=== PATIENT | female | born 1985 | race American Indian/Alaskan Native ===

== ENCOUNTER 2022-04-18 09:14 | Inpatient (IN) | payer OTHER ==
[2022-04-18] MEDS ORDERED: LIDOCAINE (2%) 20 MG/1 ML VIAL 20 ML MDV INFILTRATI NR (11:24)
[2022-04-18] MEDS ORDERED: ePHEDrine SULFATE 50 MG/1 ML INJ IV PRN ×2 (11:24→18:39)
[2022-04-18] MEDS ORDERED: miSOPROStol 200 MCG TAB PR PRN ×2 (11:24→21:52)
[2022-04-18] MEDS ORDERED: TERBUTALINE 1 MG/1 ML INJ SUB-Q PRN (11:24)
[2022-04-18] MEDS ORDERED: OXYTOCIN DRIP 30 UNITS/500 ML BAG IV SCH (12:00)
[2022-04-18] MEDS ORDERED: METHYLERGONOVINE MALEATE 0.2 MG/ML VIAL IM PRN ×2 (12:00→21:52)
[2022-04-18] MEDS ORDERED: CARBOPROST TROMETHAMINE 250 MCG/1 ML INJ IM PRN (12:00)
[2022-04-18] MEDS ORDERED: BUTORPHANOL 2 MG/1 ML INJ IV PRN ×2 (12:00)
[2022-04-18] MEDS ORDERED: ACETAMINOPHEN 325 MG TAB PO PRN ×2 (12:00→21:52)
[2022-04-18] MEDS ORDERED: OXYTOCIN 10 UNIT/1 ML INJ IM PRN (12:00)
[2022-04-18] MEDS ORDERED: fentaNYL 100 MCG/2 ML INJ IV PRN (12:00)
[2022-04-18] MEDS ORDERED: LOPERAMIDE 2 MG CAP PO PRN (12:00)
[2022-04-18 12:06] LABS: Hematocrit 34.4 % (30.3-42.9); Hemoglobin 11.1 gm/dl (10.1-14.3); Mean Corpuscular HGB Conc 32 % (30-34); Mean Corpuscular Volume 88 fl (79-97); Platelet Count 313 K/mm3 (140-440); Red Blood Count 3.92 M/mm3 (3.65-5.03); Red Cell Distribution Width 14.2 % (13.2-15.2)
[2022-04-18] MEDS: LACTATED RINGERS 1,000 ML IV SCH ×2 (12:17→17:45)
[2022-04-18] MEDS: OXYTOCIN DRIP 30 UNITS/500 ML BAG IV SCH ×7 (12:18→17:12)
--- NOTE | 2022-04-18 18:02 | History and Physical Report ---
History of Present Illness Date of examination: 04/18/22 Date of admission: 04/18/22 11:28 Chief complaint: Scheduled induction History of present illness: Pt is a 36 year old -[place] female WILDA 04/22/22 at 39w3d who presents for induction of labor secondary to morbid obesity. She reports irregular contractions, and denies vaginal bleeding or leakage of fluid. She has had care at [facility] with comanagement by [facility] secondary to advanced maternal age, anemia, genital herpes without lesion or prodrome, grandmultiparity, h/o PPROM and delivery and morbid obesity. She is GBS negative. 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 Family/Genetic History: none Social history: no significant social history - Obstetrical History Expected Date of Delivery: 04/22/22 Actual Gestation: 39 Week(s) 3 Day(s) : 10 Para: 6 Hx # Term Pregnancies: 5 Number of Pregnancies: 1 Spontaneous Abortions: 0 Induced : 0 Number of Living Children: 6 Medications and Allergies Allergies Allergy/AdvReac Type Severity Reaction Status Date / Time No Known Allergies Allergy Unverified 04/18/22 11:24 Active Meds: Active Medications Acetaminophen (Acetaminophen 325 Mg Tab) 650 mg PO Q4H PRN PRN Reason: Pain, Mild (1-3) Butorphanol Tartrate (Butorphanol 2 Mg/1 Ml Inj) 1 mg IV Q2H PRN PRN Reason: Pain, Moderate(4-6) LABOR PAIN Last Admin: 04/18/22 17:36 Dose: 1 mg Butorphanol Tartrate (Butorphanol 2 Mg/1 Ml Inj) 2 mg IV Q2H PRN PRN Reason: Pain , Severe (7-10) Carboprost Tromethamine (Carboprost Tromethamine 250 Mcg/1 Ml Inj) 250 mcg IM ONCE PRN PRN Reason: Uterine Bleeding Ephedrine Sulfate (Ephedrine Sulfate 50 Mg/1 Ml Inj) 10 mg IV Q2M PRN PRN Reason: Hypotension Fentanyl (Fentanyl 100 Mcg/2 Ml Inj) 100 mcg IV Q2H PRN PRN Reason: Pain,Severe (7-10) LABOR PAIN Oxytocin/Sodium Chloride (Pitocin/Ns 30 Unit/500ml) 30 units in 500 mls @ 2 mls/hr IV TITR OMKAR; Protocol Last Admin: 04/18/22 17:12 Dose: 14 ml/hr, 14 mls/hr Lactated Ringer's (Lactated Ringers) 1,000 mls @ 125 mls/hr IV DIRECT OMKAR Last Admin: 04/18/22 17:45 Dose: 125 mls/hr Oxytocin/Sodium Chloride (Pitocin/Ns 30 Unit/500ml) 30 units in 500 mls @ 40 mls/hr IV TITR OMKAR; Protocol Lidocaine (Lidocaine (2%) 20 Mg/1 Ml Vial 20 Ml Mdv) 20 ml INFILTRATI ONCE NR Stop: 04/18/22 20:00 Loperamide HCl (Loperamide 2 Mg Cap) 2 mg PO ONCE PRN PRN Reason: give with Hemabate Methylergonovine Maleate (Methylergonovine Maleate 0.2 Mg/Ml Vial) 0.2 mg IM ONCE PRN PRN Reason: Uterine Bleeding Mineral Oil (Mineral Oil 30 Ml Oral Liqd) 30 ml PO QHS PRN PRN Reason: Constipation Misoprostol (Misoprostol 200 Mcg Tab) 800 mcg TN ONCE PRN PRN Reason: Uterine Bleeding Oxytocin (Oxytocin 10 Unit/1 Ml Inj) 10 unit IM ONCE PRN PRN Reason: Uterine Bleeding Terbutaline Sulfate (Terbutaline 1 Mg/1 Ml Inj) 0.25 mg SUB-Q ONCE PRN PRN Reason: Hyperstimulation/Hypertonicity Review of Systems All systems: negative - Vital Signs Vital signs: Vital Signs Pulse BP 99 H 117/64 04/18/22 10:09 04/18/22 10:09 Temp Pulse Resp BP Pulse Ox 98.4 F 86 16 112/64 99 04/18/22 10:27 04/18/22 17:54 04/18/22 10:27 04/18/22 16:17 04/18/22 17:54 - Physical Exam Breasts: Positive: deferred Abdomen: Positive: soft (obese, gravid ) Genitourinary (Female): Positive: normal external genitalia Uterus: Positive: enlarged (gravid ) Extremities: Positive: edema (trace ) - Obstetrical FHR: auscultation normal Uterine Contraction Monitor Mode: External Cervical Dilatation: 4 Cervical Effacement Percentage: 70 station: -2 Uterine Contraction Pattern: Regular Uterine Tone Measurement Phase: Resting Uterine Contraction Intensity: Moderate Results Result Diagrams: 04/18/22 Unknown Abnormal lab results 04/18/22 Range/Units Unknown WBC 13.1 H (4.5-11.0) K/mm3 All other labs normal. Assessment and Plan A: IUP at 39w3d Morbid Obesity Advanced Maternal Age Grandmultiparity Anemia Genital herpes without lesion or prodrome h/o PPROM and delivery GBS negative P: Admit to labor and delivery Pitocin augmentation AROM- meconium stained fluid Closely monitor maternal and status
--- NOTE | 2022-04-18 18:36 | Event Note ---
Date: 04/18/22 Pt more comfortable with epidural. Category II tracing. SVE: /-1. Continue pitocin augmentaton. Closely monitor clinical status.
[2022-04-18] MEDS ORDERED: fentaNYL-BUPIV 2 MCG/ML-0.125% 200 MCG/100 ML BAG EPIDURAL SCH (18:39)
[2022-04-18] MEDS ORDERED: NALOXONE 0.4 MG/1 ML INJ IV PRN (18:39)
--- NOTE | 2022-04-18 18:46 | Progress Note ---
Labor Epidural - Labor Epidural Start Time: 18:15 Stop Time: 18:19 Performed by:: SAVI YATES Procedure: Epidural Requested for Labor Pain. H&P and PT Chart reviewed and consent obtained. Time out performed and the procedure was explained, all questions answered. Patient was placed in a sitting position with monitors applied. The PTs back was prepped and draped in usual sterile fashion. The Skin was localized with 3 mL of 1% lidocaine at L3-L4. A 17-gauge Touhy epidural needle was advanced to JIMMY with saline at 7 cm and no blood/CSF was noted via epidural needle. Epidural catheter was advanced to 12 cm. There was negative aspiration for blood and CSF in the catheter and negative response to a test dose of 3 ml 1.5% lidocaine w/ Epi and a sterile dressing was applied Patient tolerated the procedure well and there were no immediate complications noted.
--- NOTE | 2022-04-18 18:46 | Anesthesia Consultation ---
Anesthesia Consult and Med Hx Date of service: 04/18/22 - Airway Anesthetic Teeth Evaluation: Good ROM Head & Neck: Adequate Mental/Hyoid Distance: Adequate Mallampati Class: Class II Intubation Access Assessment: Probably Good - Pulmonary Exam CTA: Yes - Cardiac Exam Cardiac Exam: RRR - Pre-Operative Health Status ASA Pre-Surgery Classification: ASA2 Proposed Anesthetic Plan: Epidural - Pulmonary Hx Smoking: No Hx Asthma: No Hx Respiratory Symptoms: No SOB: No COPD: No Home Oxygen Therapy: No Hx Pneumonia: No Hx Sleep Apnea: No - Cardiovascular System Hx Hypertension: No Hx Coronary Artery Disease: No Hx Heart Attack/AMI: No Hx Angina: No Hx Percutaneous Transluminal Coronary Angioplasty (PTCA): No Hx Cardia Arrhythmia: No Hx Pacemaker: No Hx Internal Defibrillator: No Hx Valvular Heart Disease: No Hx Heart Murmur: No Hx Peripheral Vascular Disease: No - Central Nervous System Hx Neuromuscular Disorder: No Hx Seizures: No CVA: No Hx Back Pain: No Hx Psychiatric Problems: No - Gastrointestinal Hx Ulcer: No Hx Gastroesophageal Reflux Disease: No - Endocrine Hx Renal Disease: No Hx End Stage Renal Disease: No Hx Cirrhosis: No Hx Liver Disease: No Hx Insulin Dependent Diabetes: No Hx Non-Insulin Dependent Diabetes: No Hx Thyroid Disease: No Hx Hypothyroidism: No Hx Hyperthyroidism: No - Hematic Hx Anemia: No Hx Sickle Cell Disease: No - Other Systems Hx Alcohol Use: No Hx Substance Use: No Hx Cancer: No Hx Obesity: No
--- NOTE | 2022-04-18 18:46 | Anesthesia Day of Surgery ---
Anesthesia Day of Surgery - Day of Surgery Patient Examined: Yes Patient H&P Reviewed: Yes Patient is NPO: Yes Beta Blockers: No Cardiac Clearance: No Pulmonary Clearance: No Fredy's Test: N/A
--- NOTE | 2022-04-18 20:09 | Procedure Note ---
OB Delivery Note - Delivery Date of Delivery: 04/18/22 Surgeon: VIRGINIA AVILES Estimated blood loss: other (600 mL) - Vaginal Delivery presentation: vertex Delivery position: OA Intrapartum events: PROM->1hr before delivery, meconium, decreased FHT variability, hemorrhage Delivery induction: oxytocin Delivery augmentation: rupture of membranes, pitocin Delivery monitor: external FHT, external uterine Route of delivery: Delivery placenta: spontaneous Episiotomy: none Delivery laceration: other (vaginal abrasions, hemostatic ) Anesthesia: epidural - A at 1 minute: 8 at 5 minutes: 9 Gender: Female (3190g (7lb 1oz) @ 1923 pm)
[2022-04-18] MEDS ORDERED: ONDANSETRON 4 MG/2 ML INJ IV PRN (21:52)
[2022-04-18] MEDS ORDERED: PROMETHAZINE 25 MG TAB PO PRN (21:52)
[2022-04-18] MEDS ORDERED: MAGNESIUM HYDROXIDE (MOM) ORAL LIQD UDC PO PRN (21:52)
[2022-04-18] MEDS ORDERED: LANOLIN/ZINC/DIMETHICONE (LANSINOH) 7 GM TP PRN ×2 (21:52)
[2022-04-18] MEDS ORDERED: diphenhydrAMINE 25 MG CAP PO PRN (21:52)
[2022-04-18] MEDS ORDERED: WITCH HAZEL/ GLYCERIN PAD TP PRN (21:52)
[2022-04-18] MEDS ORDERED: BENZOCAINE/MENTHOL 20/0.5% TOP SPRAY 56 GM TP PRN (21:52)
[2022-04-18] MEDS ORDERED: PROMETHAZINE 25 MG RECT SUPP PR PRN (21:52)
[2022-04-18] MEDS: FERROUS SULFATE 325 MG TAB PO SCH (22:00)
[2022-04-18] MEDS ORDERED: MINERAL OIL 30 ML ORAL LIQD PO PRN (22:00)
[2022-04-18] MEDS: IBUPROFEN 800 MG TAB PO SCH (22:00)
[2022-04-19] MEDS: HYDROcodone/ACETAMINOPHEN 5-325 MG TAB PO PRN ×3 (02:00→18:06)
[2022-04-19] MEDS: IBUPROFEN 800 MG TAB PO SCH ×3 (05:46→22:14)
[2022-04-19] MEDS ORDERED: MEASLES, MUMPS & RUBELLA 12,500 UNIT/0.5 ML VACCINE SUB-Q ONE (06:00)
[2022-04-19] MEDS ORDERED: TETANUS,DIPH,PERTUSS(ACELL) VACCINE 0.5 ML SYRINGE IM ONE (06:00)
--- NOTE | 2022-04-19 07:56 | Discharge Summary ---
Providers - Providers Date of Admission: 04/18/22 11:28 Date of discharge: 04/20/22 Attending physician: VIRGINIA AVILES 04/18/22 21:52 Consult to Primary Care Provider [CONS] Routine Reason For Exam: assistance with , SNS Primary care physician: VIRGINIA AVILES Hospitalization Reason for admission: induction of labor Delivery: Episiotomy: none Laceration: none Other procedures: none complications: none Discharge diagnosis: IUP at term delivered baby: female Hospital course: Pt is a 36 year old -[place] female WILDA 04/22/22 at 39w3d who presents for induction of labor secondary to morbid obesity. She reports irregular contractions, and denies vaginal bleeding or leakage of fluid. She has had care at [facility] with comanagement by [facility] secondary to advanced maternal age, anemia, genital herpes without lesion or prodrome, grandmultiparity, h/o PPROM and delivery and morbid obesity. She is GBS negative. Delivered viable female infant via . Doing well. Condition at discharge: Good Disposition: 01 HOME / SELF CARE / HOMELESS - Discharge Diagnoses (1) Status post normal vaginal delivery Status: Acute (2) Morbid obesity with BMI of 40.0-44.9, adult Status: Acute Plan - Discharge Medications Prescriptions: Ibuprofen [Motrin 800 MG tab] 800 mg PO Q8HR #30 tablet - Provider Discharge Summary Activity: routine, no sex for 6 weeks, no heavy lifting 4 weeks, no strenuous exercise Diet: other (Iron rich diet) Instructions: routine Additional instructions: [] Smoking cessation referral if applicable(refer to patient education folder for contact #) [] Refer to [facility] Booklet Call your doctor immediately for: * Fever > 100.5 * Heavy vaginal bleeding ( >1 pad per hour) * Severe persistent headache * Shortness of breath * Reddened, hot, painful area to leg or breast * Drainage or odor from incision. * Keep incision clean and dry at all times and follow doctor's instructions regarding bathing/showering - Follow up plan Follow up: VIRGINIA AVILES MD [Primary Care Provider] - 6 Weeks
[2022-04-19 08:11] LABS: Hemoglobin 10.6 gm/dl (10.1-14.3)
[2022-04-19] MEDS: FERROUS SULFATE 325 MG TAB PO SCH ×2 (10:18→22:14)
--- NOTE | 2022-04-19 16:35 | Post Anesthesia Evaluation ---
- Post Anesthesia Evaluation Patient Participated: Yes Airway Patent: Yes Stable Respiratory Function: Yes Nausea/Vomiting: No Temp > 96.8F: Yes Pain Manageable: Yes Adequeate Hydration: Yes Anesthesia Complications: No Block Receding Appropriately: Yes Patient on Ventilator: No
[2022-04-20] MEDS: HYDROcodone/ACETAMINOPHEN 5-325 MG TAB PO PRN (01:33)
[2022-04-20 09:15] VITALS: BP 106/61
[2022-04-20] MEDS: FERROUS SULFATE 325 MG TAB PO SCH (10:13)
[2022-04-20] MEDS: IBUPROFEN 800 MG TAB PO SCH (10:13)
== END 2022-04-20 11:35 | disposition home or self-care (01) | DRG 774 ==
LOC: TRG 09:14 → LD 09:16 → TRG 11:43 → OB 21:55 → UNDODISIN 04-19 11:35
PROVIDERS: ADMIT Obstetrics & Gynecology; ATTEND Obstetrics & Gynecology
PROC: 10E0XZZ Delivery of Products of Conception, External Approach (ICD-10-PCS; principal; 2022-04-18)
PROC: 0UQG7ZZ Repair Vagina, Via Natural or Artificial Opening (ICD-10-PCS; 2022-04-18)
PROC: 10907ZC Drainage of Amniotic Fluid, Therapeutic from Products of Conception, Via Natural or Artificial Opening (ICD-10-PCS; 2022-04-18)
PROC: 3E0R3BZ Introduction of Anesthetic Agent into Spinal Canal, Percutaneous Approach (ICD-10-PCS; 2022-04-18)
PROC: 00HU33Z Insertion of Infusion Device into Spinal Canal, Percutaneous Approach (ICD-10-PCS; 2022-04-18)
PROC: 3E0234Z Introduction of Serum, Toxoid and Vaccine into Muscle, Percutaneous Approach (ICD-10-PCS; 2022-04-19)
PROC: 3E0134Z Introduction of Serum, Toxoid and Vaccine into Subcutaneous Tissue, Percutaneous Approach (ICD-10-PCS; 2022-04-19)
DX: O42.913 Preterm premature rupture of membranes, unspecified as to length of time between rupture and onset of labor, third trimester (principal); O98.32 Other infections with a predominantly sexual mode of transmission complicating childbirth; E66.01 Morbid (severe) obesity due to excess calories; Z3A.39 39 weeks gestation of pregnancy; Z20.822 Contact with and (suspected) exposure to COVID-19; A60.00 Herpesviral infection of urogenital system, unspecified; O99.02 Anemia complicating childbirth; O99.214 Obesity complicating childbirth; O77.0 Labor and delivery complicated by meconium in amniotic fluid; O71.4 Obstetric high vaginal laceration alone; Z37.0 Single live birth; Z23 Encounter for immunization; O76 Abnormality in fetal heart rate and rhythm complicating labor and delivery; O72.1 Other immediate postpartum hemorrhage; Z68.41 Body mass index [BMI] 40.0-44.9, adult
CPT/HCPCS: 36415; 85014; 85018; 85027; 86850; 86900; 86901; G0378; J0595; J2210; J2590; J3010; J7120; U0003